=== PATIENT | female | born 1955 | race Caucasian/White ===

== ENCOUNTER 2017-01-19 11:20 | Emergency (ER) | payer OTHER ==
[~2017-01-19] VITALS: Ht 167.6 cm; Wt 107.2 kg
[~2017-01-19 11:20] MED LIST: ALBU8.5H3 INH; ALBU8.5H5 INH; ASPI-496 PO; CALC-570 PO; CYCL5TAB PO; FLUT1AER INH; FLUT1DIS IH; IBUP-1222 PO; LEVO750T26 PO; MELA3TAB PO; MULT-709 PO; MULT-717 PO; OMEG1CAP12 PO; RANI75TA PO; ROSU10TA PO
[2017-01-19] MEDS ORDERED: AMLO10TA2 PO (11:51)
[2017-01-19] MEDS ORDERED: SODIUM CHLORIDE FLUSH 10ML SYR IVF ONE (12:30)
[2017-01-19 12:45] LABS: BLOOD UREA NITROGEN 10 mg/dL (7-18)
[2017-01-19 12:51] LABS: IS PT STATUS REG ER OR PRE ER? YES
[2017-01-19 14:36] VITALS: BP 124/73
== END 2017-01-19 14:39 | disposition home or self-care (01) ==
LOC: ED 14:37
DX: R06.00 Dyspnea, unspecified (principal); J44.9 Chronic obstructive pulmonary disease, unspecified; E78.5 Hyperlipidemia, unspecified
CPT/HCPCS: 36415; 71010; 80048; 82040; 84439; 84443; 84484; 85025; 93005; 99285

== ENCOUNTER → 2017-02-02 | Outpatient (CLI) | payer OTHER ==
[~2017-02-02] MED LIST changes: +AMLO10TA2 PO; +AMLO5TAB2 PO; +MAGNESIUM PO
== END | disposition home or self-care (01) ==
LOC: RAD 15:05
PROVIDERS: ATTEND Internal Medicine
DX: R91.8 Other nonspecific abnormal finding of lung field (principal); J43.9 Emphysema, unspecified; I25.10 Atherosclerotic heart disease of native coronary artery without angina pectoris; I28.8 Other diseases of pulmonary vessels; M47.894 Other spondylosis, thoracic region
CPT/HCPCS: 71250

== ENCOUNTER 2017-02-04 08:51 | Day surgery (SDC) | payer OTHER ==
[~2017-02-04] VITALS: Ht 167.6 cm; Wt 107.0 kg
[~2017-02-04 08:51] MED LIST changes: -OMEG1CAP12 PO; +OMEG1CAP23 PO
[2017-02-04] MEDS ORDERED: LACTATED RINGERS 1,000 ML IV SCH (09:20)
[2017-02-04 09:49] VITALS: BP 126/79
[2017-02-04] MEDS ORDERED: PROPOFOL 10 MG/ML, 50ML ONE (10:12)
[2017-02-04] MEDS ORDERED: ROCURONIUM 10 MG/ML ONE (10:12)
[2017-02-04] MEDS ORDERED: GLYCOPYRROLATE 0.2MG/1ML ONE (10:12)
[2017-02-04] MEDS ORDERED: EPHEDRINE 50 MG/ML, 1ML ONE (10:12)
[2017-02-04] MEDS ORDERED: SUCCINYLCHOLINE 20 MG/ML, 10ML ONE (10:12)
[2017-02-04] MEDS ORDERED: DEXAMETHASONE 4 MG/ML, 1ML ONE (10:12)
[2017-02-04] MEDS ORDERED: ONDANSETRON 2MG/ML, 2ML ONE (10:12)
[2017-02-04] MEDS ORDERED: PHENYLEPHRINE 10 MG/ML ONE (10:12)
[2017-02-04] MEDS ORDERED: NEOSTIGMINE 1 MG/ML, 10ML ONE (10:12)
[2017-02-04] MEDS ORDERED: PROPOFOL 10 MG/ML, 20ML ONE (10:12)
[2017-02-04] MEDS ORDERED: SCOPOLAMINE PATCH, 1.5MG PATCH.TD72 TD ONE ×2 (10:42→10:47)
[2017-02-04] MEDS ORDERED: MIDAZOLAM 1 MG/ML, 2ML ONE (11:10)
[2017-02-04] MEDS ORDERED: FENTANYL PF 250 MCG/5ML ONE (11:10)
[2017-02-04] MEDS ORDERED: ONDANSETRON 2MG/ML, 2ML IVPush PRN (12:00)
[2017-02-04] MEDS ORDERED: LABETALOL 5MG/ML, 20ML IV PRN (12:00)
[2017-02-04] MEDS ORDERED: HYDROmorphone 1 MG/ML, 1ML IV PRN (12:00)
[2017-02-04] MEDS ORDERED: OXYcodone 5 MG/5 ML ORAL.SOL UDC PO PRN (12:00)
[2017-02-04] MEDS ORDERED: EPHEDRINE 50 MG/ML, 1ML IVPush PRN (12:00)
[2017-02-04] MEDS ORDERED: MIDAZOLAM 1 MG/ML, 2ML IV PRN (12:00)
[2017-02-04] MEDS ORDERED: FENTANYL PF 100 MCG/2ML IV PRN (12:00)
[2017-02-04] MEDS ORDERED: MEPERIDINE/PF 25MG/0.5ML IVPush PRN (12:00)
[2017-02-04] MEDS ORDERED: PROMETHAZINE 25 MG/ML, 1ML IV PRN (12:00)
[2017-02-04] MEDS ORDERED: ALBUTEROL/IPRATROPIUM 2.5MG/0.5MG, 3 ML NPPB PRN (12:00)
[2017-02-04] MEDS ORDERED: ACETAMINOPHEN 325 MG TABLET PO PRN (12:00)
[2017-02-04] MEDS ORDERED: hydrALAzine 20 MG/ML, 1ML IV PRN (12:00)
== END 2017-02-04 15:05 | disposition home or self-care (01) ==
LOC: OUT 08:51
PROVIDERS: ATTEND Internal Medicine
DX: C34.31 Malignant neoplasm of lower lobe, right bronchus or lung (principal); J44.9 Chronic obstructive pulmonary disease, unspecified; Z99.81 Dependence on supplemental oxygen; E78.5 Hyperlipidemia, unspecified; I10 Essential (primary) hypertension; K21.9 Gastro-esophageal reflux disease without esophagitis; Z88.8 Allergy status to other drugs, medicaments and biological substances; J96.11 Chronic respiratory failure with hypoxia; Z88.6 Allergy status to analgesic agent; F17.210 Nicotine dependence, cigarettes, uncomplicated; Z80.3 Family history of malignant neoplasm of breast; Z82.49 Family history of ischemic heart disease and other diseases of the circulatory system; Z83.3 Family history of diabetes mellitus
CPT/HCPCS: 31623; 31624; 31625; 31627; 31628; 71010; 88112; 88172; 88173; 88177; 88304; 88305; 88341; 88342; J0330; J1100; J2250; J2370; J2405; J2704; J2710; J3010; J7120; 31632; 76001; J3490; G0461

== ENCOUNTER → 2017-03-03 | Outpatient (CLI) | payer OTHER ==
[~2017-03-03] MED LIST changes: +OMEG1CAP12 PO; -OMEG1CAP23 PO
== END | disposition home or self-care (01) ==
LOC: CARD 14:00
PROVIDERS: ATTEND Internal Medicine
DX: J44.9 Chronic obstructive pulmonary disease, unspecified (principal)
CPT/HCPCS: 94060; 94726; 94729

== ENCOUNTER 2017-04-21 05:11 | Day surgery (SDC) | payer OTHER ==
[2017-04-17 10:39] VITALS: BP 144/92
[~2017-04-21] VITALS: Ht 165.1 cm; Wt 107.6 kg
[~2017-04-21 05:11] MED LIST changes: -OMEG1CAP12 PO; +OMEG1CAP23 PO
[2017-04-21] MEDS ORDERED: LACTATED RINGERS 1,000 ML IV SCH (06:14)
[2017-04-21 06:17] VITALS: BP 144/92
[2017-04-21] MEDS ORDERED: FENTANYL PF 100 MCG/2ML ONE (06:28)
[2017-04-21] MEDS ORDERED: MIDAZOLAM 1 MG/ML, 2ML ONE (06:28)
[2017-04-21] MEDS ORDERED: LIDOCAINE 1%, 2ML SQ PRN (06:30)
[2017-04-21] MEDS ORDERED: EPINEPHRINE 1 MG/ML, 1ML ONE (06:39)
[2017-04-21] MEDS ORDERED: LIDOCAINE/PF 1%, 30ML ONE (06:39)
[2017-04-21] MEDS ORDERED: EPINEPHRINE TOPICAL SOLN 1 MG/ML, 30ML ONE (06:39)
[2017-04-21] MEDS ORDERED: SCOPOLAMINE PATCH, 1.5MG PATCH.TD72 TD ONE (07:00)
[2017-04-21] MEDS ORDERED: ALBUTEROL SULFATE 2.5 MG/3 ML NPPB PRN (07:00)
[2017-04-21] MEDS ORDERED: MEPERIDINE/PF 25MG/0.5ML IVPush PRN (07:00)
[2017-04-21] MEDS ORDERED: ONDANSETRON 2MG/ML, 2ML IVPush PRN (07:00)
[2017-04-21] MEDS ORDERED: PROMETHAZINE 25 MG/ML, 1ML IV PRN (07:00)
[2017-04-21] MEDS ORDERED: METOCLOPRAMIDE 5 MG/ML, 2ML IV PRN (07:00)
[2017-04-21] MEDS ORDERED: OXYcodone 5 MG/5 ML ORAL.SOL UDC PO PRN (07:00)
[2017-04-21] MEDS ORDERED: FENTANYL PF 100 MCG/2ML IV PRN (07:00)
[2017-04-21] MEDS ORDERED: hydrALAzine 20 MG/ML, 1ML IV PRN (07:00)
[2017-04-21] MEDS ORDERED: LABETALOL 5MG/ML, 20ML IV PRN (07:00)
[2017-04-21] MEDS ORDERED: HYDROmorphone 1 MG/ML, 1ML IV PRN (07:00)
[2017-04-21] MEDS ORDERED: ACETAMINOPHEN 325 MG TABLET PO PRN (07:00)
[2017-04-21] MEDS ORDERED: PROPOFOL 10 MG/ML, 50ML ONE (07:04)
[2017-04-21] MEDS ORDERED: DEXAMETHASONE 4 MG/ML, 1ML ONE (07:04)
[2017-04-21] MEDS ORDERED: ROCURONIUM 10 MG/ML ONE (07:04)
[2017-04-21] MEDS ORDERED: NEOSTIGMINE 1 MG/ML, 10ML ONE (07:04)
[2017-04-21] MEDS ORDERED: GLYCOPYRROLATE 0.2MG/1ML ONE (07:04)
[2017-04-21] MEDS ORDERED: PROPOFOL 10 MG/ML, 20ML ONE (07:04)
[2017-04-21] MEDS ORDERED: LIDOCAINE/MPF 2%-EPI 1:200K, 20 ML ONE (07:12)
[2017-04-21] MEDS ORDERED: LIDOCAINE 2%-EPI 1:100K, 20ML INFIL ONE (07:30)
[2017-04-21] MEDS ORDERED: ACETAMINOPHEN 650 MG/20.3 ML UDC ONE (08:18)
== END 2017-04-21 10:20 | disposition home or self-care (01) ==
LOC: OUT 05:11
PROVIDERS: ATTEND Otolaryngology
DX: K14.8 Other diseases of tongue (principal); I10 Essential (primary) hypertension; J44.9 Chronic obstructive pulmonary disease, unspecified; K21.9 Gastro-esophageal reflux disease without esophagitis; F17.210 Nicotine dependence, cigarettes, uncomplicated; Z99.81 Dependence on supplemental oxygen; Z85.118 Personal history of other malignant neoplasm of bronchus and lung; Z79.899 Other long term (current) drug therapy; Z79.82 Long term (current) use of aspirin; Z88.8 Allergy status to other drugs, medicaments and biological substances
CPT/HCPCS: 31535; 88305; J1100; J2250; J2704; J2710; J3010; J3490; J7120; J0171

== ENCOUNTER → 2017-07-24 | Outpatient (CLI) | payer OTHER ==
[~2017-07-24] MED LIST changes: -ALBU8.5H3 INH; +ALBU8.5H8 INH; -MELA3TAB PO; +MELA3TAB2 PO; -RANI75TA PO; +[UNRECOGNIZED DRUG - CODE] PO
== END | disposition home or self-care (01) ==
LOC: CFH 10:41
PROVIDERS: ATTEND Radiology Radiation Oncology
DX: C34.31 Malignant neoplasm of lower lobe, right bronchus or lung (principal); R91.1 Solitary pulmonary nodule; I10 Essential (primary) hypertension
CPT/HCPCS: 71250

== ENCOUNTER → 2017-08-24 | Outpatient (CLI) | payer OTHER | LOC: PETCFH 13:47 | PROVIDERS: ATTEND Internal Medicine Hematology & Oncology | DX: C34.31 Malignant neoplasm of lower lobe, right bronchus or lung (principal); R91.8 Other nonspecific abnormal finding of lung field | CPT/HCPCS: 78815; A9552 ==

== ENCOUNTER → 2017-08-27 | Outpatient (CLI) | payer OTHER | END | disposition home or self-care (01) | LOC: ROC 08-26 08:05 | PROVIDERS: ATTEND Radiology Radiation Oncology | DX: Z08 Encounter for follow-up examination after completed treatment for malignant neoplasm (principal); C34.31 Malignant neoplasm of lower lobe, right bronchus or lung; R91.8 Other nonspecific abnormal finding of lung field; Z79.82 Long term (current) use of aspirin | CPT/HCPCS: 99213; G0463 ==

== ENCOUNTER 2017-09-03 08:40 | Day surgery (SDC) | payer OTHER ==
[~2017-09-03] VITALS: Ht 167.6 cm; Wt 107.0 kg
[2017-09-03 09:20] VITALS: BP 143/88
[2017-09-03] MEDS ORDERED: FENTANYL PF 100 MCG/2ML ONE (10:17)
[2017-09-03] MEDS ORDERED: NALOXONE 1 MG/ML, 2ML ONE (10:17)
[2017-09-03] MEDS ORDERED: FLUMAZENIL 0.1 MG/1 ML, 5ML ONE (10:17)
[2017-09-03] MEDS ORDERED: MIDAZOLAM 1 MG/ML, 5ML ONE (10:17)
== END 2017-09-03 15:48 ==
LOC: OUT 08:40
PROVIDERS: ATTEND Radiology Radiation Oncology
DX: C34.12 Malignant neoplasm of upper lobe, left bronchus or lung (principal); J93.9 Pneumothorax, unspecified; Z79.82 Long term (current) use of aspirin; Z88.8 Allergy status to other drugs, medicaments and biological substances; I10 Essential (primary) hypertension; F17.210 Nicotine dependence, cigarettes, uncomplicated
CPT/HCPCS: 32405; 71010; 77012; 88305; 99156; C2613; J2250; J3010; 99157; J2310